=== PATIENT | female | born 1965 | race Two or more races ===

== ENCOUNTER → 2016-06-18 | Outpatient (CLI) | payer OTHER ==
--- NOTE | 2016-06-18 14:33 | MA ---
Right Diagnostic Mammogram Indication: Developing density and architectural distortion deep inner right breast versus superimpos ed fibroglandular tissue. Technique: True lateral and large-paddle spot-compressed CC and MLO views of the lower inner right br east. Comparison: Screening mammograms dating back to January 2006. Findings: A focal asymmetry persists in the deep inner right breast 3 o'clock position on the spot-co mpressed and true lateral views. No definite architectural distortion. No associated malignant-type c alcification. Impression: Persistent vague asymmetry deep inner right breast on additional spot views. BI-RADS 0: Needs additional imaging evaluation. Recommendation: Proceed with right breast ultrasound. Unfortunately, the patient was not scheduled fo r the procedure and could not be added to the schedule on the same day. Patient will need to return o n a separate day for further characterization.
== END ==
LOC: BMCIMAGING 13:09
DX: Z12.39 Encounter for other screening for malignant neoplasm of breast (principal); R92.2 Inconclusive mammogram
CPT/HCPCS: G0206

== ENCOUNTER → 2016-06-21 | Outpatient (CLI) | payer OTHER ==
--- NOTE | 2016-06-21 13:58 | US ---
Right Breast Sonography Clinical History: 50-year-old female with no family history of breast cancer who was noted to have a persistent focal asymmetry in the retromammary adipose of the right breast on recent diagnostic mammo graphy. Technique: A linear 12 MHz transducer was used to sonographically evaluate the posteromedial right br east targeting the 3 o'clock position. Both the respiratory therapist assistant and the sonologist performed the exam. Comparison Studies: Diagnostic mammography dated June 18, 2016, and bilateral screening mammograph y dated June 04, 2016, December 19, 2014, September 28, 2013, and July 14, 2007. Findings: The area of parenchymal asymmetry seen on the spot compression craniocaudal view in the ret romammary adipose does not have a sonographic correlate. MR imaging of the breasts is therefore recom mended to determine if there could be a corresponding abnormality. I reviewed this case with Dr. Erasto Johnson, who concurs with this approach. I also reviewed my findings and recommendations with the patient at the time of exam performance. Impression: There is no sonographic correlate to the mammographic opacity identified in the posterior medial retromammary adipose. Imaging therefore remains incomplete, and MR evaluation of the breasts is recommended. A test result has been communicated to a licensed care provider and documented in [facility], 1:49:17 PM , 06/21/2016, [employer] Message ID [id number].
== END ==
LOC: BMCIMAGING 13:03
DX: Z12.39 Encounter for other screening for malignant neoplasm of breast (principal); R92.2 Inconclusive mammogram

== ENCOUNTER → 2016-07-19 | Outpatient (CLI) | payer OTHER ==
[~2016-07-19] MED LIST: GADOBUTROL 10 ML VIAL IVP ONE
--- NOTE | 2016-07-19 15:52 | MR ---
MRI of Bilateral Breasts Clinical Indications: Abnormal right breast mammogram. Problem-solving. Technique: Precontrast sagittal fat-saturated T2-weighted and Vibrant images of both breasts are obt ained. Subsequently, during intravenous administration of 9 mL Gadavist, multiphasic sagittally acqu ired Vibrant MR images through both breasts are obtained. Data is sent to the independent [facility] orkstation for additional analysis including 3D reconstruction, computer-aided detection (CAD), and c olor-coded phase contrast enhancement evaluation. Comparison examinations: Right breast mammograms of June 18, 2016, June 04, 2016, December 09 5. Findings: Right breast: There is a bandlike area of abnormal parenchymal enhancement, measuring 12 x 3 mm, pre sent in the far upper medial aspect of the right breast. This abnormality is best visualized on sagi ttal image #92 of series #7 and coronal image #40 of series #8. The lesion demonstrates mixed kineti cs. This lesion corresponds to the mammographic asymmetry identified on the screening study. This l esion is new from prior study of 2014 and, therefore, is indeterminate for benign or malignant etiolo gy. Given that the lesion is properly localized on the MRI examination and resides within the far up per aspect right breast, recommend attempt at stereotactic biopsy sampling utilizing a craniocaudal a pproach. This biopsy may require use of the petite needle due to the close proximity to the skin. Partially calcified nonenhancing fibroadenoma is identified in the lateral right breast. No other werner spicious areas of abnormal enhancement within the right breast identified. Left breast: Benign-appearing fibrocystic-type enhancement pattern is present. Lymph nodes: No evidence of axillary or internal mammary lymphadenopathy. Impression: Suspicious new lesion in the far upper medial aspect of the right breast requiring tissu e sampling. BI-RADS 4. Recommendation: Stereotactic biopsy of the upper right breast utilizing a craniocaudal approach.
== END ==
LOC: FIMAGING 13:10
PROVIDERS: ATTEND Midwife
DX: R92.8 Other abnormal and inconclusive findings on diagnostic imaging of breast (principal)
CPT/HCPCS: A9585

== ENCOUNTER → 2016-08-17 | Day surgery (SDC) | payer OTHER | END | disposition home or self-care (01) | LOC: FIMAGING 11:42 | PROVIDERS: ATTEND Midwife | DX: N63 Unspecified lump in breast (principal); Z53.8 Procedure and treatment not carried out for other reasons ==

== ENCOUNTER → 2017-02-03 | Outpatient (CLI) | payer OTHER | LOC: BMCIMAGING 10:27 | PROVIDERS: ATTEND Internal Medicine | DX: R22.31 Localized swelling, mass and lump, right upper limb (principal); Z95.0 Presence of cardiac pacemaker ==

== ENCOUNTER → 2017-11-15 | Outpatient (CLI) | payer OTHER | LOC: BMCIMAGING 13:21 | PROVIDERS: ATTEND Internal Medicine | DX: Z12.31 Encounter for screening mammogram for malignant neoplasm of breast (principal) ==

== ENCOUNTER → 2018-01-02 | Outpatient (CLI) | payer OTHER | LOC: FIMAGING 12:56 | PROVIDERS: ATTEND Allergy & Immunology Allergy | DX: J34.1 Cyst and mucocele of nose and nasal sinus (principal) ==

== ENCOUNTER → 2018-02-23 | Outpatient (CLI) | payer SELFPAY ==
[~2018-02-23] MED LIST changes: +FLUMAZENIL 0.5 MG/5 ML MDV IVP PRN; +MEPERIDINE 25 MG/ML SYR IVP PRN; +MIDAZOLAM 2 MG/2 ML VIAL IVP PRN; +NALOXONE HCL 0.4 MG/ML INJ IVP PRN; +NS 1,000 ML IV SCH; +ONDANSETRON 4 MG/2 ML VIAL IVP ONE; +fentaNYL 100 MCG/2 ML INJ IVP PRN
--- NOTE | 2018-02-23 09:52 | PDGENHP ---
History & Physical Chief Complaint: abnl breast mri History of Present Illness: abnl breast mri Cardiorespiratory Assessment: RRR, clear lungs
--- NOTE | 2018-02-23 09:53 | PDPROPOC ---
Sedation Plan of Care Sedation Plan of Care: vital signs stable, mental status noted, patient educated of risks, benefits, alternatives, patient can tolerate sedation ASA Classification: ASA 1 Planned drugs: fentanyl, midazolam Mallampati Score: Class 2 Mallampati Reference Image: Patient passed 3-3-2 rule?: Yes
[2018-02-23 10:08] VITALS: BP 155/104
== END ==
LOC: FIMAGING 08:25
PROVIDERS: ATTEND Surgery
DX: D24.1 Benign neoplasm of right breast (principal)
CPT/HCPCS: 0159T; A9585; C8908; J2250; J2310; J3010

== ENCOUNTER → 2018-05-22 | Outpatient (CLI) | payer OTHER | LOC: BMCIMAGING 12:37 | PROVIDERS: ATTEND Physician Assistant | DX: R19.00 Intra-abdominal and pelvic swelling, mass and lump, unspecified site (principal) ==

== ENCOUNTER 2018-06-07 12:05 | Emergency (ER) | payer OTHER ==
--- NOTE | 2018-06-07 12:29 | EDPHY ---
HPI/HX/ROS/PE/MDM Narrative: CHIEF COMPLAINT: Chest pain, lightheadedness HPI: This patient is a 52-year-old female who is s/p pacemaker placement. She complains of midsternal chest discomfort. She woke up with a "slow, deep pain" in her chest early this morning, around 2:00am. She initially attributed it to GERD and was able to sleep again, but woke with persistent discomfort. She tried famotidine without relief. The patient initially presented to urgent care but was referred here to the emergency department. The patient notes her symptoms today feel like "kind of the same kind of thing" as in "January 2017, [ when] my heart stopped". She further describes this as a 20 second pause, and states this is the reason for her pacer placement. She endorses a throbbing chest pain at that time. She has never undergone cardiac catheterization but has had a normal stress test. The patient additionally notes that she underwent endoscopy and colonoscopy on Tuesday, two days ago. She felt well following this until this morning. No fever, shortness of breath, nausea, vomiting, diarrhea, melena, or other associated symptoms. REVIEW OF SYSTEMS: A comprehensive 10 system review of systems is otherwise negative aside from elements mentioned in the history of present illness and medical decision making. PMH: Pacemaker placed. Hysterectomy. SOCIAL HISTORY: . Lives in [place]. 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 Melendez [place] [facility] [place]. PHYSICAL EXAM: General:Patient is alert, in no acute distress. ENT:Eyes are normal to inspection. ENT inspection normal. Neck: Normal inspection. Full range of motion. Respiratory:No respiratory distress. Breath sounds normal bilaterally. Cardiovascular: Regular rate and rhythm. Strong peripheral pulses. Normal cap refill. Abdomen:The abdomen is nontender to palpation. There are no peritoneal signs. There are normal bowel sounds. Back: Normal to inspection. No tenderness to palpation. Skin: Normal color. No rash. Warm and dry. Extremities: Normal appearance. Full range of motion. Neuro: Oriented x3. Normal motor function. Normal sensory function. ED Course: 52 y/o female with pacemaker placement, history of GERD presents with midsternal chest pain onset this morning. Exam is largely unremarkable. Plan for EKG, chest x-ray, labs including CBC, chemistries, POC troponin, liver, lipase. plan to administer GI cocktail for symptom relief. EKG was ordered and interpreted by myself. Please see [facility] system for official reading. Chest x-ray unremarkable. Pacer visualized. Laboratory results reviewed. Troponin negative. Labs otherwise unremarkable. 13:40 Reassessed. Her pain is reduced but persists. Discussed imaging and laboratory results. I offered admission for further evaluation. Patient declines and would like to go home. Discussed outpatient followup including risks. She understands and is comfortable with discharge. Follow up and return precautions discussed. She will follow up with cardiology and her primary care provider for further evaluation. She is comfortable with this plan. MDM: This patient presents with epigastric SSCP in the setting of recent endoscopy and history of GERD. There is no evidence of pancreatitis, esophageal perforation, pneumomediastinum or ACS. I recommended hospital observation but patient would like to go home and follow-up as outpatient. She understands that the etiology of her symptoms is currently unknown. - Data Points Imaging Results: Imaging Impressions Chest X-Ray 06/07/18 12:29 Impression: Normal. Imaging: I viewed and interpreted images myself Laboratory Results: Laboratory Results 06/07/18 12:23 06/07/18 12:23 06/07/18 06/07/18 06/07/18 12:25 12:23 12:23 WBC 6.81 10^3/uL 10^3/uL (3.80-9.50) RBC 5.01 10^6/uL 10^6/uL (4.18-5.33) Hgb 15.7 g/dL g/dL (12.6-16.3) Hct 45.8 % % (38.0-47.0) MCV 91.4 fL fL (81.5-99.8) MCH 31.3 pg pg (27.9-34.1) MCHC 34.3 g/dL g/dL (32.4-36.7) RDW 12.4 % % (11.5-15.2) Plt Count 300 10^3/uL 10^3/uL (150-400) MPV 9.7 fL fL (8.7-11.7) Neut % (Auto) 57.3 % % (39.3-74.2) Lymph % (Auto) 31.1 % % (15.0-45.0) Kimball % (Auto) 6.6 % % (4.5-13.0) Eos % (Auto) 3.5 % % (0.6-7.6) Baso % (Auto) 1.2 % % (0.3-1.7) Nucleat RBC Rel Count 0.0 % % (0.0-0.2) Absolute Neuts (auto) 3.90 10^3/uL 10^3/uL (1.70-6.50) Absolute Lymphs (auto) 2.12 10^3/uL 10^3/uL (1.00-3.00) Absolute Monos (auto) 0.45 10^3/uL 10^3/uL (0.30-0.80) Absolute Eos (auto) 0.24 10^3/uL 10^3/uL (0.03-0.40) Absolute Basos (auto) 0.08 10^3/uL 10^3/uL (0.02-0.10) Absolute Nucleated RBC 0.00 10^3/uL 10^3/uL (0-0.01) Immature Gran % 0.3 % % (0.0-1.1) Immature Gran # 0.02 10^3/uL 10^3/uL (0.00-0.10) Sodium 139 mEq/L mEq/L (135-145) Potassium 3.8 mEq/L mEq/L (3.5-5.2) Chloride 108 mEq/L mEq/L (97-110) Carbon Dioxide 21 mEq/l L mEq/l (22-31) Anion Gap 10 mEq/L mEq/L (6-14) BUN 13 mg/dL mg/dL (7-23) Creatinine 0.6 mg/dL mg/dL (0.6-1.0) Estimated GFR > 60 Glucose 105 mg/dL H mg/dL (70-100) Calcium 9.4 mg/dL mg/dL (8.5-10.4) Total Bilirubin 0.7 mg/dL mg/dL (0.1-1.4) Conjugated Bilirubin 0.2 mg/dL mg/dL (0.0-0.5) Unconjugated Bilirubin 0.5 mg/dL mg/dL (0.0-1.1) AST 27 IU/L IU/L (14-46) ALT 34 IU/L IU/L (9-52) Alkaline Phosphatase 121 IU/L IU/L (38-126) POC Troponin I 0.01 ng/mL ng/mL (0.00-0.08) Total Protein 7.3 g/dL g/dL (6.3-8.2) Albumin 4.5 g/dL g/dL (3.5-5.0) Lipase 69 IU/L IU/L (23-300) Medications Given: Discontinued Medications Al Hydroxide/Mg Hydroxide (Maalox Susp) 30 ml PO ONCE ONE Stop: 06/07/18 12:39 Last Admin: 06/07/18 12:42 Dose: 30 ml Hyoscyamine Sulfate (Levsin, Hyomax-Sl) 0.25 mg PO ONCE ONE Stop: 06/07/18 12:39 Last Admin: 06/07/18 12:42 Dose: 0.25 mg Lidocaine (Lidocaine 2% Viscous) 15 ml PO ONCE ONE Stop: 06/07/18 12:39 Last Admin: 06/07/18 12:42 Dose: 15 ml Point of Care Test Results: Chemistry 06/07/18 12:25 POC Troponin I 0.01 ng/mL ng/mL (0.00-0.08) General Time Seen by Provider: 06/07/18 12:26 Initial Vital Signs: Initial Vital Signs Temperature (C) 37 C 06/07/18 12:06 Heart Rate 72 06/07/18 12:06 Respiratory Rate 18 06/07/18 12:06 Blood Pressure 184/87 H 06/07/18 12:06 O2 Sat (%) 96 06/07/18 12:06 O2 Delivery Mode Room Air Allergies/Adverse Reactions: amoxicillin Allergy (Verified 06/07/18 12:05) codeine Allergy (Verified 06/07/18 12:05) diltiazem [From Cardizem] Allergy (Verified 06/07/18 12:05) erythromycin base Allergy (Verified 06/07/18 12:05) Penicillins Allergy (Verified 06/07/18 12:05) Home Medications: Medication Instructions Recorded Claritin 02/17/18 Pepcid 20 MG (*) 20 mg PO QID 02/17/18 Departure - Departure Disposition: Home, Routine, Self-Care Clinical Impression: Chest pain Condition: Good Instructions: Chest Pain (ED) Additional Instructions: Follow-up with your primary doctor within 2-3 days. Return to the Emergency Department for fever, chest pain, shortness of breath, increasing pain or other worsening of condition. Follow up with a content management specialist for further testing, as soon as possible, within one week. As we discussed, it is impossible to fully rule out heart disease as the cause of your chest pain in the emergency department. We would be happy to reevaluate you and observe you in the hospital at any time. Referrals: Samuel Olmos MD [Medical Doctor] - As per Instructions Ora James MD [place] [place] - As per Instructions Stand Alone Forms: Work Excuse Report Scribed for: Austin Fox Report Scribed by: Hailee Quevedo Date of Report: 06/07/18 Time of Report: 12:28 Physician Review and Approval Statement: Portions of this note were transcribed by an ED scribe. I personally performed the history, physical exam, and medical decision making; and confirm the accuracy of the information in the transcribed note.
[2018-06-07] MEDS ORDERED: MAG HYDROX/AL HYDROX/SIMETH 30 ML UDCUP PO ONE (12:38)
[2018-06-07] MEDS ORDERED: HYOSCYAMINE SULFATE 0.125 MG TAB PO ONE (12:38)
[2018-06-07] MEDS ORDERED: LIDOCAINE 2% VISCOUS 15 ML UDCUP PO ONE (12:38)
[2018-06-07 12:43] LABS: PLATELET COUNT 300 10^3/uL (150-400)
[2018-06-07 13:59] VITALS: BP 166/94
--- NOTE | 2018-06-07 14:45 | CPEKG ---
Test Reason : OPEN Blood Pressure : / mmHG Vent. Rate : 074 BPM Atrial Rate : 074 BPM P-R Int : 161 ms QRS Dur : 085 ms QT Int : 414 ms P-R-T Axes : 026 050 103 degrees QTc Int : 460 ms Sinus rhythm Confirmed by Austin Fox ([id number] on 06/07/2018 2:44:58 PM Referred By: Confirmed By:Austin Fox
== END 2018-06-07 14:02 | disposition home or self-care (01) ==
DX: R07.9 Chest pain, unspecified (principal); K21.9 Gastro-esophageal reflux disease without esophagitis; Z95.0 Presence of cardiac pacemaker
CPT/HCPCS: 84484-ER